=== PATIENT | female | born 1960 | race Caucasian/White ===

== ENCOUNTER 2017-04-05 19:23 | Emergency (ER) | payer MEDICAID ==
[~2017-04-05] VITALS: Ht 154.9 cm; Wt 86.5 kg
[~2017-04-05 19:23] MED LIST: CARV12.543 PO; LEVO200T8; LEVO300T2 PO; LISI40TA; METO25TA35 PO; MIRT45TA4 PO; SPIR25TA3 PO; VENL75CA PO
[2017-04-05] MEDS ORDERED: ASPIRIN 325 MG TABLET ONE (19:46)
[2017-04-05] MEDS ORDERED: ASPIRIN 81 MG TABLET CHEW PO ONE (20:00)
[2017-04-05 20:04] LABS: HEMATOCRIT 34.7 % (34.6-47.8); HEMOGLOBIN 11.2 g/dL (11.7-16.4); WHITE BLOOD COUNT 6.9 x10^3/uL (3.4-10)
[2017-04-05 20:15] LABS: ASPARTATE AMINO TRANSFERASE 23 U/L (15-37); BLOOD UREA NITROGEN 8 mg/dL (7-18)
[2017-04-05] MEDS ORDERED: KETOROLAC 30 MG/1 ML ONE (20:22)
[2017-04-05] MEDS ORDERED: morphine SULFATE 10 MG/ML, 1ML ONE (20:23)
[2017-04-05 20:25] LABS: IS PT STATUS REG ER OR PRE ER? YES
[2017-04-05] MEDS ORDERED: SODIUM CHLORIDE FLUSH 10ML SYR IVF ONE (20:30)
[2017-04-05] MEDS ORDERED: SODIUM CHLORIDE 0.9% 1,000ML IVBOLUS ONE (20:30)
[2017-04-05] MEDS ORDERED: morphine SULFATE 10 MG/ML, 1ML IVPush PRN (20:30)
[2017-04-05] MEDS ORDERED: KETOROLAC 30 MG/1 ML IVPush ONE (20:30)
[2017-04-05 20:35] LABS: RAPID INFLUENZA A Negative (Negative); RAPID INFLUENZA B Negative (Negative)
[2017-04-05] MEDS ORDERED: LABETALOL 5MG/ML, 20ML ONE (20:47)
[2017-04-05] MEDS ORDERED: LABETALOL 5MG/ML, 20ML IVPush ONE (21:00)
[2017-04-05] MEDS ORDERED: POTASSIUM CHLORIDE 20 MEQ TAB.ER.PRT ONE (21:35)
[2017-04-05] MEDS ORDERED: FUROSEMIDE 20 MG/2 ML ONE (21:35)
[2017-04-05] MEDS ORDERED: FUROSEMIDE 20 MG/2 ML IV ONE (22:00)
[2017-04-05] MEDS ORDERED: POTASSIUM CHLORIDE 20 MEQ TAB.ER.PRT PO ONE (22:00)
[2017-04-05] MEDS ORDERED: OMNIPAQUE 350 MG/ML, 100ML BOTTLE ONE (22:06)
[2017-04-05 22:35] VITALS: BP 164/92
== END 2017-04-05 23:10 | disposition home or self-care (01) ==
LOC: ED 23:00
DX: B96.89 Other specified bacterial agents as the cause of diseases classified elsewhere (principal); I50.9 Heart failure, unspecified; I11.0 Hypertensive heart disease with heart failure; J81.0 Acute pulmonary edema; E03.9 Hypothyroidism, unspecified; G89.29 Other chronic pain
CPT/HCPCS: 36415; 71010; 71275; 80053; 83880; 84484; 85025; 85379; 87040; 87400; 93005; 96374; 96375; 99285; J1885; J1940; J2270; J7030; Q9967

== ENCOUNTER 2017-05-13 22:16 | Emergency (ER) | payer MEDICAID ==
[~2017-05-13] VITALS: Ht 157.5 cm; Wt 89.0 kg
[2017-05-13] MEDS ORDERED: ASPIRIN 81 MG TABLET CHEW ONE (22:54)
[2017-05-13] MEDS ORDERED: ASPIRIN 81 MG TABLET CHEW PO ONE (23:00)
[2017-05-13 23:18] LABS: BASOPHILS # (AUTO) 0.09 x10^3/uL (0-0.1); BASOPHILS % (AUTO) 1 % (0-1); EOSINOPHILS # (AUTO) 0.12 x10^3/uL (0-0.4); EOSINOPHILS % (AUTO) 2 % (1-7); LYMPHOCYTES # (AUTO) 1.21 x10^3/uL (1-3.4); LYMPHOCYTES % (AUTO) 19 % (22-44); MD NO; MEAN CORPUSCULAR HEMOGLOBIN 24.8 pg (27.0-34.8); MEAN CORPUSCULAR HGB CONC 32.1 g/dL (32.4-35.8); MEAN CORPUSCULAR VOLUME 77.2 fL (80-100); MEAN PLATELET VOLUME 7.7 fL (7.4-10.4); MONOCYTES # (AUTO) 0.58 x10^3/uL (0.2-0.8); MONOCYTES % (AUTO) 9 % (2-9); NEUTROPHILS # (AUTO) 4.51 x10^3/uL (1.8-6.8); NEUTROPHILS % (AUTO) 69 % (42-75); PLATELET COUNT 357 x10^3/uL (130-400); RED BLOOD COUNT 4.02 x10^6/uL (3.82-5.3); RED CELL DISTRIBUTION WIDTH 17.9 % (9.6-15.2)
[2017-05-13 23:28] LABS: ALBUMIN 2.9 g/dL (3.4-5.0); ANION GAP 9 mmol/L (5-15); CALCIUM 9.1 mg/dL (8.5-10.1); CHLORIDE 108 mmol/L (98-107)
[2017-05-13 23:33] LABS: CREATININE 0.75 mg/dL (0.55-1.02); TROPONIN I < 0.015 ng/mL (0.000-0.045)
[2017-05-14 00:39] VITALS: BP 141/79
== END 2017-05-14 00:41 | disposition home or self-care (01) ==
LOC: ED 23:00
DX: I50.9 Heart failure, unspecified (principal); R07.9 Chest pain, unspecified; D64.9 Anemia, unspecified; E66.9 Obesity, unspecified; E07.9 Disorder of thyroid, unspecified; G89.29 Other chronic pain
CPT/HCPCS: 36415; 71045; 80048; 82040; 83880; 84484; 85025; 93005; 99285

== ENCOUNTER 2017-06-08 06:30 | Emergency (ER) | payer MEDICAID, OTHER ==
[~2017-06-08] VITALS: Ht 157.5 cm; Wt 90.0 kg
[2017-06-08] MEDS ORDERED: GABA-827 PO (06:40)
[2017-06-08] MEDS ORDERED: METH500T97 PO (06:40)
[2017-06-08] MEDS ORDERED: METHOCARBAMOL 750 MG TABLET PO ONE (07:00)
[2017-06-08] MEDS ORDERED: KETOROLAC 30 MG/1 ML IM ONE (07:00)
[2017-06-08] MEDS ORDERED: KETOROLAC 30 MG/1 ML ONE (07:10)
[2017-06-08] MEDS ORDERED: HYDROmorphone 2 MG/ML, 1ML ONE (07:10)
[2017-06-08] MEDS ORDERED: DIAZEPAM 5 MG/ML, 2ML IVPush ONE (07:30)
[2017-06-08] MEDS ORDERED: HYDROmorphone 1 MG/ML, 1ML IVPush PRN (07:30)
[2017-06-08] MEDS ORDERED: KETOROLAC 30 MG/1 ML IVPush ONE (07:30)
[2017-06-08] MEDS ORDERED: METHOCARBAMOL 1,000 MG in DEXTROSE 5% 100 ML IV ONE (09:30)
[2017-06-08 13:38] VITALS: BP 190/98
== END 2017-06-08 14:48 | disposition home or self-care (01) ==
LOC: ED 07:15
DX: G89.29 Other chronic pain (principal); M54.5 Low back pain; E03.9 Hypothyroidism, unspecified; E66.9 Obesity, unspecified; I50.9 Heart failure, unspecified; I11.0 Hypertensive heart disease with heart failure
CPT/HCPCS: 96365; 96375; 99284; J1170; J1885; J2800; J3360